=== PATIENT | female | born 1995 | race Caucasian/White ===

== ENCOUNTER 2017-09-28 00:09 | Emergency (ER) | payer BC ==
[2017-09-28] MEDS ORDERED: Metoclopramide HCl 10 MG/2 ML VIAL ONE (02:53)
[2017-09-28] MEDS ORDERED: Ketorolac Tromethamine 30 MG/ML VIAL ONE (02:53)
== END 2017-09-28 03:37 | disposition home or self-care (01) ==
LOC: ERS 00:09
DX: R51 Headache (principal); F41.9 Anxiety disorder, unspecified; F32.9 Major depressive disorder, single episode, unspecified; F90.9 Attention-deficit hyperactivity disorder, unspecified type
CPT/HCPCS: 96365; 96375; J1885; J2765